=== PATIENT | male | born 1960 | race American Indian/Alaskan Native ===

== ENCOUNTER 2022-02-05 10:33 | Emergency (ER) | payer SELFPAY ==
[2022-02-05 10:50] VITALS: BP 121/97
--- NOTE | 2022-02-05 15:52 | Emergency Department Report ---
ED General Adult HPI - General Chief complaint: Nausea/Vomiting/Diarrhea Stated complaint: VOMITING Source: patient, EMS Mode of arrival: Stretcher Limitations: No Limitations - History of Present Illness Initial comments: 61-year-old male presents to the ED for [place] the airport. Patient states that he was aboard airplane flying to the [place] when he started to nausea.. Patient states that he was brought to the ED by ambulance for medical clearance. Patient states that he has a history of irritable bowel syndrome and peptic ulcer. He states that he had just taken his medication dicyclomine 100mg , which he normally takes with food. Patient states that he did not take the medication with food this morning and caused him to be very nauseated. Patient states that he did not wish to have any blood work or any testing done. Patient states that he feels fine. Patient is alert and oriented denies any discomfort or pain at present time. He denies any chest pain, shortness of breath, or abdominal pain at present. No acute distress noted. No ill appearance noted -: This morning Severity scale (0 -10): 0 Associated Symptoms: denies other symptoms Treatments Prior to Arrival: none - Related Data Home Medications Medication Instructions Recorded Confirmed Last Taken carvediloL [Coreg] 3.125 mg PO BID 02/05/22 02/05/22 02/05/22 06:00 Allergies Allergy/AdvReac Type Severity Reaction Status Date / Time No Known Allergies Allergy Unverified 02/05/22 10:50 ED Review of Systems ROS: Stated complaint: VOMITING Other details as noted in HPI Constitutional: denies: chills, fever Eyes: denies: eye pain, eye discharge, vision change ENT: denies: ear pain, throat pain Respiratory: denies: cough, shortness of breath, wheezing Cardiovascular: denies: chest pain, palpitations Endocrine: no symptoms reported Gastrointestinal: denies: abdominal pain, nausea, diarrhea Genitourinary: denies: urgency, dysuria Musculoskeletal: denies: back pain, joint swelling, arthralgia Skin: denies: rash, lesions Neurological: denies: headache, weakness, paresthesias Psychiatric: denies: anxiety, depression Hematological/Lymphatic: denies: easy bleeding, easy bruising ED Past Medical Hx - Past Medical History Hx Hypertension: Yes Hx CVA: Yes - Medications Home Medications: Home Medications Medication Instructions Recorded Confirmed Last Taken Type carvediloL [Coreg] 3.125 mg PO BID 02/05/22 02/05/22 02/05/22 06:00 History ED Physical Exam - General Limitations: No Limitations General appearance: alert, in no apparent distress - Head Head exam: Present: atraumatic, normocephalic - Eye Eye exam: Present: normal appearance - ENT ENT exam: Present: mucous membranes moist - Neck Neck exam: Present: normal inspection - Respiratory Respiratory exam: Present: normal lung sounds bilaterally. Absent: respiratory distress - Cardiovascular Cardiovascular Exam: Present: regular rate, normal rhythm. Absent: systolic murmur, diastolic murmur, rubs, gallop - GI/Abdominal GI/Abdominal exam: Present: soft, normal bowel sounds - Rectal Rectal exam: Present: deferred - Extremities Exam Extremities exam: Present: normal inspection - Back Exam Back exam: Present: normal inspection - Neurological Exam Neurological exam: Present: alert, oriented X3 - Psychiatric Psychiatric exam: Present: normal affect, normal mood - Skin Skin exam: Present: warm, dry, intact, normal color. Absent: rash ED Course Vital Signs 02/05/22 10:46 Temperature 98.3 F Pulse Rate 78 Respiratory 16 Rate Blood Pressure 121/97 [Left] O2 Sat by Pulse 95 Oximetry ED Medical Decision Making - Medical Decision Making 61-year-old male presents to the ED for vomiting x1 [place] the airport. Patient states that he was aboard airplane flying to the [place] when he started to nausea.. Patient states that he was brought to the ED by ambulance for medical clearance. Patient states that he has a history of irritable bowel syndrome and peptic ulcer. He states that he had just taken his medication dicyclomine 100mg , which he normally takes with food. Patient states that he did not take the medication with food this morning and caused him to be very nauseated. Patient states that he did not wish to have any blood work or any testing done. Patient states that he feels fine. Patient is alert and oriented denies any discomfort or pain at present time. He denies any chest pain, shortness of breath, or abdominal pain at present. No acute distress noted. No ill appearance noted. Physical examination is unremarkable. Patient refused any lab work or testing at present time. He states that he has a flight that he needs to schedule at 5 PM. Rechecked the patient is resting quietly quietly and comfortable and feeling better. I discussed the results of diagnostic study, my clinical impression and the plan for further treatment with the patient. Patient agrees with plan and discharge at this present time. All question addressed. I have given the patient instruction regarding a diagnosis ,expectation ,follow- up and return precaution. I explained to the patient that emergent condition may arise and to return to the ED for new worsen and any new persisting condition. I have explained the importance of following up with the primary care physician or referral physician listed below has instructed. The patient verbalized understanding of discharge instruction. Critical care attestation.: If time is entered above; I have spent that time in minutes in the direct care of this critically ill patient, excluding procedure time. ED Disposition Clinical Impression: Normal physical exam Disposition: 01 HOME / SELF CARE / HOMELESS Is pt being admited?: No Does the pt Need Aspirin: No Condition: Stable Instructions: Medical Screening Exam Additional Instructions: Patient is okay to get on a medical patient is okay flight on airplane Follow-up with your primary care doctor upon arriving to home time Referrals: BELLA BAIG MD [Primary Care Provider] - 3-5 Days [facility] [Provider Group] - 3-5 Days Time of Disposition: 15:48
== END 2022-02-05 19:42 | disposition home or self-care (01) ==
LOC: ED 10:33
DX: R11.0 Nausea (principal); I10 Essential (primary) hypertension; Z86.73 Personal history of transient ischemic attack (TIA), and cerebral infarction without residual deficits
CPT/HCPCS: 99283